=== PATIENT | male | born 1990 | race Caucasian/White ===

== ENCOUNTER → 2018-02-20 | Outpatient (CLI) | payer SELFPAY, OTHER | LOC: M WUC 16:54 | DX: M25.521 Pain in right elbow (principal) | CPT/HCPCS: 73080 ==

== ENCOUNTER 2018-11-15 19:39 | Emergency (ER) | payer OTHER ==
[~2018-11-15] VITALS: Ht 167.6 cm; Wt 77.3 kg
[2018-11-15] MEDS ORDERED: IBUP-1022 PO (19:45)
[2018-11-15] MEDS ORDERED: ACETAMINOPHEN 325 MG TAB PO ONE (20:15)
[2018-11-15 20:54] LABS: INFLUENZA A AMPLIFICATION NEGATIVE (NEGATIVE); INFLUENZA B AMPLIFICATION NEGATIVE (NEGATIVE)
[2018-11-15] MEDS ORDERED: MUCI600T31 PO (20:58)
[2018-11-15] MEDS ORDERED: ZITHTAB PO (20:58)
[2018-11-15] MEDS ORDERED: BENZ200C70 PO (20:58)
[2018-11-15] MEDS ORDERED: BENZONATATE 100 MG CAP PO ONE (21:00)
[2018-11-15] MEDS ORDERED: AZITHROMYCIN 250 MG TAB PO ONE (21:00)
[2018-11-15 21:02] VITALS: BP 116/60
--- NOTE | 2018-11-16 09:32 | REP ---
Clinical: Cough and shortness of breath . Comparison: None . Technique: PA and lateral. Findings: The mediastinum and cardiac silhouette are normal. The lung charl[place] are clear and without acute consolidation, effusion, or pneumothorax. The skeletal structures are intact and normal. Impression: 1. No acute cardiopulmonary process. Electronically Signed by Thien Villalta MD 11/16/2018 09:23 A
== END 2018-11-15 21:11 | disposition home or self-care (01) ==
LOC: M ED 19:39
DX: J18.9 Pneumonia, unspecified organism (principal); F17.200 Nicotine dependence, unspecified, uncomplicated